=== PATIENT | male | born 1965 | race Two or more races ===

== ENCOUNTER 2019-01-20 10:16 | Emergency (ER) | payer OTHER ==
[2019-01-20] MEDS ORDERED: TETRACAINE HCL 0.5% OPH SOLN 4 ML OS ONE (10:58)
--- NOTE | 2019-01-20 11:13 | ER Document Report ---
ED Medical Screen (RME) - General Chief Complaint: Eye Injury Stated Complaint: LEFT EYE PAIN Time Seen by Provider: 01/20/19 10:58 Primary Care Provider: JAMEL REESE MD [Primary Care Provider] - Follow up as needed Information source: Patient Notes: Patient states that he was drilling into a ceiling and had either ceiling material or metal from the drilling fall into his left eye. Patient complains of blurred vision, tearing and photophobia. Patient does not wear contact lenses. I have greeted and performed a rapid initial assessment of this patient. A comprehensive ED assessment and evaluation of the patient, analysis of test results and completion of the medical decision making process will be conducted by additional ED providers. - Related Data Allergies/Adverse Reactions: No Known Allergies Allergy (Verified 09/30/12 23:50) Past Medical History Neurological Medical History: Denies: Hx Seizures - Immunizations Hx Diphtheria, Pertussis, Tetanus Vaccination: No Physical Exam - Vital signs Vitals: Temp Resp Pulse Ox 98.1 F 15 96 01/20/19 10:16 01/20/19 10:16 01/20/19 10:16 - General General appearance: Alert Notes: Sclera injected to left eye, visible foreign body to left eye Course - Vital Signs Vital signs: Temp Pulse Resp BP Pulse Ox 98.1 F 69 15 140/77 H 96 01/20/19 10:24 01/20/19 10:24 01/20/19 10:24 01/20/19 10:24 01/20/19 10:24 Doctor's Discharge - Discharge Referrals: JAMEL REESE MD [Primary Care Provider] - Follow up as needed
--- NOTE | 2019-01-20 14:07 | ER Document Report ---
ED Eye Complaint - General Chief Complaint: Eye Injury Stated Complaint: LEFT EYE PAIN Time Seen by Provider: 01/20/19 10:58 Primary Care Provider: JAMEL REESE MD [ACTIVE STAFF] - Follow up as needed LYSSA DOTSON MD [ACTIVE STAFF] - 01/20/19 (GO TO SEE DR. DOTSON WITHOUT FAIL DIRECTLY AFTER DISCHARGE. ) - HPI Notes: 53-year-old male to the emergency department with complaints of left eye pain that began yesterday while he was at work. 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 He was not wearing protective eyewear. He states that since then he has had tearing and pain in his eye. He states his eyes very red. He denies any discharge. He denies any fevers or chills. He does not wear any contacts or any regular glasses. He does use reading glasses. He states that he is not up-to-date on his tetanus. He was not welding. - Related Data Allergies/Adverse Reactions: No Known Allergies Allergy (Verified 09/30/12 23:50) Past Medical History - General Information source: Patient - Social History Smoking Status: Current Every Day Smoker Frequency of alcohol use: None Drug Abuse: None Lives with: Family Family History: Reviewed & Not Pertinent, Other Patient has suicidal ideation: No Patient has homicidal ideation: No Neurological Medical History: Denies: Hx Seizures - Immunizations Hx Diphtheria, Pertussis, Tetanus Vaccination: No Review of Systems - Review of Systems Constitutional: denies: Chills, Fever EENT: Eye pain, Eye discharge, Tearing. denies: Double vision, Ear pain Cardiovascular: denies: Chest pain, Palpitations, Syncope, Dizziness, Lightheaded Respiratory: denies: Cough, Short of breath Gastrointestinal: denies: Abdominal pain, Diarrhea, Nausea, Vomiting Genitourinary: No symptoms reported Male Genitourinary: No symptoms reported Musculoskeletal: No symptoms reported Skin: No symptoms reported Hematologic/Lymphatic: No symptoms reported Neurological/Psychological: No symptoms reported -: Yes All other systems reviewed and negative Physical Exam - Vital signs Vitals: Temp Resp Pulse Ox 98.1 F 15 96 01/20/19 10:16 01/20/19 10:16 01/20/19 10:16 Selected Entries 01/20/19 10:24 Temperature 98.1 F Pulse Rate 69 Respiratory 15 Rate Blood Pressure 140/77 H O2 Sat by Pulse 96 Oximetry Interpretation: Normal - General General appearance: Appears well, Alert In distress: None - HEENT Head: Normocephalic Eyes: Normal Conjunctiva: Injected - Left sclera is erythematous and inflamed. There is no evidence for foreign body to the sclera. There is no chemosis. Cornea: Embedded foreign body - To the left cornea at the 9 o'clock position there is a dark foreign body that appears to be metallic in nature. Attempts to remove the foreign body with saline and Q-tip were unsuccessful. There is no rest warning. There does not appear to be any ulceration. There is no hyphema. Wood's lamp exam does not show any other stain uptake. Extraocular movements intact: Yes Eyelashes: Normal Pupils: PERRL Visual acuity- Right eye: 20/40 Visual acuity- Left eye: 20/50 Visual acuity- Both eyes: 20/30 Corrective lenses worn: No Ears: Normal External canal: Normal Tympanic membrane: Normal Sinus: Normal Nasal: Normal Mouth/Lips: Normal Mucous membranes: Normal Pharynx: Normal. No: Potential airway comprom. Neck: Normal, Supple. No: Lymphadenopathy, Meningismus - Respiratory Respiratory status: No respiratory distress Chest status: Nontender. No: Accessory muscle use Breath sounds: Normal. No: Rales, Rhonchi, Wheezing Chest palpation: Normal - Cardiovascular Rhythm: Regular Heart sounds: Normal auscultation Murmur: No - Abdominal Inspection: Normal Distension: No distension Bowel sounds: Normal Tenderness: Nontender Organomegaly: No organomegaly - Neurological Neuro grossly intact: Yes Cognition: Normal Orientation: AAOx4 [place] Coma Scale Eye Opening: Spontaneous [place] Coma Scale Verbal: Oriented [place] Coma Scale Motor: Obeys Commands [place] Coma Scale Total: 15 Speech: Normal Cranial nerves: Normal. No: Facial palsy, Forehead sparing, Gaze palsy, Sensory deficit, Tongue deviation Cerebellar coordination: Normal. No: Gait ataxia Motor strength normal: LUE, RUE, LLE, RLE Additional motor exam normals: Equal payment collector. No: Pronator drift Sensory: Normal - Psychological Associated symptoms: Normal affect, Normal mood - Skin Skin Temperature: Warm Skin Moisture: Dry Skin Color: Normal Course - Re-evaluation Re-evalutation: 01/20/[address] Benavides. We do not have an ophthalmic bur here in the emergency department. Dr. Benavides suggests that I call casing crew Dr. Dotson and see if he will see him in the office for further management of foreign body. Called Dr. Dotson's office and they are willing to see the patient. They are aware of the foreign body and the context in which it occurred. Patient will be discharged and will go directly to the office for further management. He will be given a tetanus shot booster. Impression: left eye foreign body to the cornea. Patient will be sent directly to casing crew for further management and removal. Patient agrees with the plan. - Vital Signs Vital signs: Temp Pulse Resp BP Pulse Ox 98.0 F 54 L 20 152/77 H 100 01/20/19 14:46 01/20/19 14:46 01/20/19 14:46 01/20/19 14:46 01/20/19 14:46 Discharge - Discharge Clinical Impression: Foreign body in cornea, left eye, initial encounter Condition: Stable Disposition: HOME, SELF-CARE Additional Instructions: GO DIRECTLY TO DR. DOTSON' OFFICE AT [address] [place] [address] IMMEDIATELY FOR FURTHER MANAGEMENT OF FOREIGN BODY IN YOUR EYE. Referrals: JAMEL REESE MD [ACTIVE STAFF] - Follow up as needed LYSSA DOTSON MD [ACTIVE STAFF] - 01/20/19 (GO TO SEE DR. DOTSON WITHOUT FAIL DIRECTLY AFTER DISCHARGE. )
[2019-01-20] MEDS ORDERED: DIPH/PERTUSS(ACELL)/TETANUS VAC/PF 0.5 ML SYR (>=10YO) IM ONE (14:30)
[2019-01-20 14:49] VITALS: BP 152/77
== END 2019-01-20 15:09 | disposition home or self-care (01) ==
LOC: ER 10:16
DX: T15.02XA Foreign body in cornea, left eye, initial encounter (principal); H57.12 Ocular pain, left eye; X58.XXXA Exposure to other specified factors, initial encounter; Y93.H3 Activity, building and construction; Y99.0 Civilian activity done for income or pay; Z23 Encounter for immunization
CPT/HCPCS: 99283; 90471; 90715; J3490